=== PATIENT | female | born 1955 | race American Indian/Alaskan Native ===

== ENCOUNTER 2019-07-16 16:58 | Emergency (ER) | payer BC ==
[2019-07-16] MEDS ORDERED: Sodium Chloride 0.9% 10 ML Syringe FLUSH PRN (17:21)
[2019-07-16] MEDS ORDERED: Ondansetron 4 MG/2 ML SDV IVPUSH ONE (17:21)
[2019-07-16] MEDS ORDERED: Sodium Chloride 0.9% 1,000 ML IV ONE (17:21)
--- NOTE | 2019-07-16 17:27 | EDM.PDOC ---
ED HPI GENERAL MEDICAL PROBLEM - General Chief Complaint: Abdominal Pain Stated Complaint: KIDNEY FAILURE SENT BY FOR LIVER Time Seen by Provider: 07/16/19 17:12 Source of Information: Reports: Patient History Limitations: Reports: No Limitations - History of Present Illness INITIAL COMMENTS - FREE TEXT/NARRATIVE: Patient is an unfortunate 63-year-old female who is obese that presents emergency Department today with complaint of nausea vomiting diarrhea and abdominal pain. Patient reports that symptoms started 3 days ago and progressively worsened since. Patient reports she is unable to keep any food or fluid down she was seen in the clinic in [place] had blood work drawn where she was noted to have a BUNs of 55 and a creatinine of 3.6 so she was sent here for evaluation. Patient denies any recent travel no recent antibiotic use no known bad food. Patient describes her pain as a crampy type pain in the right upper quadrant and epigastrium. Patient denies any fever no hematemesis, no hematochezia, no melena, no dysuria, no frequency, no urgency, no vaginal discharge, no foul odors - Related Data Allergies Allergy/AdvReac Type Severity Reaction Status Date / Time No Known Allergies Allergy Verified 07/16/19 17:21 Home Meds: Home Meds Metoprolol Tartrate [Lopressor] 07/16/19 [History] amLODIPine [Norvasc] 07/16/19 [History] metroNIDAZOLE [Flagyl] 500 mg PO BID 07/16/19 [History] ED ROS GENERAL - Review of Systems Review Of Systems: See Below Constitutional: Denies: Fever, Chills GI/Abdominal: Reports: Abdominal Pain, Diarrhea, Nausea, Vomiting. Denies: Bloody Stool, Hematemesis, Hematochezia ED EXAM, GI/ABD - Physical Exam Exam: See Below Exam Limited By: No Limitations General Appearance: Alert, WD/WN, Mild Distress, Obese Nose: Normal Inspection, Normal Mucosa, No Blood Throat/Mouth: Normal Inspection, Normal Lips, Normal Teeth, Normal Gums, Normal Oropharynx, Normal Voice, No Airway Compromise Head: Atraumatic, Normocephalic Neck: Normal Inspection, Supple, Non-Tender, Full Range of Motion Respiratory/Chest: No Respiratory Distress, Lungs Clear, Normal Breath Sounds, No Accessory Muscle Use, Chest Non-Tender Cardiovascular: Normal Peripheral Pulses, Regular Rate, Rhythm, No Edema, No Gallop, No JVD, No Murmur, No Rub GI/Abdominal Exam: Normal Bowel Sounds, Soft, No Organomegaly, Tender (Moderate right upper quadrant, moderate epigastric tenderness) Back Exam: Normal Inspection, Full Range of Motion, NT Extremities: Normal Inspection Neurological: Alert, Oriented Skin Exam: Warm, Dry, No Rash Course - Vital Signs Last Recorded V/S: Last Vital Signs Temp 97.0 F 07/16/19 17:13 Pulse 70 07/16/19 17:13 Resp 16 07/16/19 17:13 BP 111/60 07/16/19 17:13 Pulse Ox 93 L 07/16/19 17:13 - Orders/Labs/Meds Orders: Active Orders 24 hr Category Date Time Status Communication Order [RC] ASDIRECTED Care 07/16/19 17:23 Active INR,PT,PROTHROMBIN TIME [COAG] Stat Lab 07/16/19 19:28 Ordered PTT,PARTIAL THROMBOPLSTIN TIME [COAG] Stat Lab 07/16/19 19:28 Ordered UA RFX JEFF AND CULT IF INDIC [URIN] Stat Lab 07/16/19 17:21 Ordered Sodium Chloride 0.9% [Saline Flush] Med 07/16/19 17:21 Active 10 ml FLUSH ASDIRECTED PRN Saline Lock Insert [OM.PC] Stat Oth 07/16/19 17:21 Ordered Medication Orders Sodium Chloride (Saline Flush) 10 ml FLUSH ASDIRECTED PRN PRN Reason: Keep Vein Open Last Admin: 07/16/19 17:33 Dose: 10 ml Labs: Laboratory Tests 07/16/19 07/16/19 Range/Units 17:28 17:28 WBC 8.44 (3.98-10.04) K/mm3 RBC 4.53 (3.98-5.22) M/mm3 Hgb 13.9 (11.2-15.7) gm/dl Hct 38.7 (34.1-44.9) % MCV 85.4 (79.4-94.8) fl MCH 30.7 (25.6-32.2) pg MCHC 35.9 H (32.2-35.5) g/dl RDW Std Deviation 43.1 (36.4-46.3) fL Plt Count 29 L (182-369) K/mm3 MPV 13.4 H (9.4-12.3) fl Neut % (Auto) 81.2 H (34.0-71.1) % Lymph % (Auto) 11.4 L (19.3-51.7) % [place] % (Auto) 5.5 (4.7-12.5) % Eos % (Auto) 0.9 (0.7-5.8) Baso % (Auto) 0.2 (0.1-1.2) % Neut # (Auto) 6.85 H (1.56-6.13) K/mm3 Lymph # (Auto) 0.96 L (1.18-3.74) K/mm3 [place] # (Auto) 0.46 H (0.24-0.36) K/mm3 Eos # (Auto) 0.08 (0.04-0.36) K/mm3 Baso # (Auto) 0.02 (0.01-0.08) K/mm3 Manual Slide Review Abnormal smear Sodium 128 L (136-145) mEq/L Potassium 2.7 L (3.5-5.1) mEq/L Chloride 94 L (98-107) mEq/L Carbon Dioxide 24 (21-32) mEq/L Anion Gap 12.7 (5-15) BUN 76 H (7-18) mg/dL Creatinine 2.4 H (0.55-1.02) mg/dL Est Cr Clr Drug Dosing 20.72 mL/min Estimated GFR (MDRD) 20 (>60) mL/min BUN/Creatinine Ratio 31.7 H (14-18) Glucose 160 H (80-115) mg/dL Calcium 10.7 H (8.5-10.1) mg/dL Total Bilirubin 4.3 H (0.2-1.0) mg/dL AST 156 H (15-37) U/L ALT 286 H (14-59) U/L Alkaline Phosphatase 201 H (46-116) U/L Total Protein 6.3 L (6.4-8.2) g/dl Albumin 2.3 L (3.4-5.0) g/dl Globulin 4.0 gm/dL Albumin/Globulin Ratio 0.6 L (1-2) Lipase 107 (73-393) U/L Meds: Medications Generic Name Dose Route Start Last Admin Trade Name Freq PRN Reason Stop Dose Admin Sodium Chloride 10 ml 07/16/19 17:21 07/16/19 17:33 Saline Flush FLUSH 10 ml ASDIRECTED PRN Administration Keep Vein Open Discontinued Medications Generic Name Dose Route Start Last Admin Trade Name Lex PRN Reason Stop Dose Admin Sodium Chloride 1,000 mls @ 1,000 mls/hr 07/16/19 17:21 07/16/19 17:33 Normal Saline IV 07/16/19 18:20 1,000 mls/hr ONETIME ONE Administration Ondansetron HCl 4 mg 07/16/19 17:21 07/16/19 17:33 Zofran IVPUSH 07/16/19 17:22 4 mg ONETIME ONE Administration Potassium Chloride 40 meq 07/16/19 18:47 07/16/19 19:19 Potassium Chloride Solution PO 07/16/19 18:48 40 meq ONETIME ONE Administration - Re-Assessments/Exams Free Text/Narrative Re-Assessment/Exam: 07/16/19 19:38 Discussed case with at [facility] in [place] who accepts patient in transfer Departure - Departure Time of Disposition: 19:39 Disposition: DC/Tfer to Hospice-[facility] Fac [facility] Clinical Impression: Liver enzyme elevation Abdominal pain Qualifiers: Abdominal location: upper abdomen, unspecified Qualified Code(s): R10.10 - Upper abdominal pain, unspecified Acute renal failure Qualifiers: Acute renal failure type: unspecified Qualified Code(s): N17.9 - Acute kidney failure, unspecified - Discharge Information Referrals: PCP,Unknown [Ordering Only Provider] - Forms: ED Department Discharge Sepsis Event Note - Evaluation Sepsis Screening Result: No Definite Risk - Focused Exam Vital Signs: Vital Signs Temp Pulse Resp BP Pulse Ox 07/16/19 17:13 97.0 F 70 16 111/60 93 L Date Exam was Performed: 07/16/19 Time Exam was Performed: 19:38 - My Orders Last 24 Hours: My Active Orders 07/16/19 17:21 UA RFX JEFF AND CULT IF INDIC [URIN] Stat Sodium Chloride 0.9% [Saline Flush] 10 ml FLUSH ASDIRECTED PRN Saline Lock Insert [OM.PC] Stat 07/16/19 17:23 Communication Order [RC] ASDIRECTED 07/16/19 19:28 INR,PT,PROTHROMBIN TIME [COAG] Stat PTT,PARTIAL THROMBOPLSTIN TIME [COAG] Stat - Assessment/Plan Last 24 Hours: My Active Orders 07/16/19 17:21 UA RFX JEFF AND CULT IF INDIC [URIN] Stat Sodium Chloride 0.9% [Saline Flush] 10 ml FLUSH ASDIRECTED PRN Saline Lock Insert [OM.PC] Stat 07/16/19 17:23 Communication Order [RC] ASDIRECTED 07/16/19 19:28 INR,PT,PROTHROMBIN TIME [COAG] Stat PTT,PARTIAL THROMBOPLSTIN TIME [COAG] Stat
--- NOTE | 2019-07-16 18:43 | US ---
Limited abdominal ultrasound: Multiple real-time images of the upper right abdomen were obtained. Liver is echogenic. Liver is slightly enlarged. No discrete focal abnormality is appreciated. Liver findings are most likely due to fatty infiltration. Shadowing noted within the gallbladder fossa compatible with contracted gallbladder around gallstones. Gallbladder wall shows mild thickening. CHD shows no dilatation. Common bile duct was not visualized with certainty. Right kidney shows no hydronephrosis or mass. Right kidney has a length of 11.2 cm. Most of the pancreas is obscured from bowel gas. Visualized portions of the pancreas shows no discrete abnormality. Main portal vein shows lack of flow suggesting occlusion. Impression: 1. Enlarged liver with probable fatty infiltration. 2. 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 3. Contracted gallbladder around gallstones. Gallbladder wall is slightly thickened which likely is chronic. No biliary duct dilatation is definitely seen. Diagnostic code #5 This report was dictated in [place] Standard Time
[2019-07-16] MEDS ORDERED: Potassium Chloride 10% 20 MEQ/15 ML Soln 15 ML UD Cup PO ONE (18:47)
[2019-07-16] MEDS ORDERED: Sodium Chloride 0.9% 1,000 ML IV SCH (19:45)
== END 2019-07-16 20:05 | disposition hospice, inpatient (51) ==
LOC: JD.ED 16:58
DX: R10.11 Right upper quadrant pain (principal); R10.13 Epigastric pain; N17.9 Acute kidney failure, unspecified; R74.8 Abnormal levels of other serum enzymes
CPT/HCPCS: 36415; 76705; 80053; 81003; 83690; 85025; 85610; 85730; 96361; 96374; 99285; A9270; J2405; J7030; 99284